=== PATIENT | female | born 2000 | race Caucasian/White ===

== ENCOUNTER 2019-04-26 09:55 | Emergency (ER) | payer MEDICAID ==
[~2019-04-26] VITALS: Ht 157.5 cm; Wt 50.3 kg
[2019-04-26 10:03] VITALS: Ht 157.5 cm; Wt 50.3 kg
[2019-04-26 11:03] VITALS: BP 108/65
== END 2019-04-26 11:56 | disposition home or self-care (01) ==
LOC: ED 09:55
DX: M94.0 Chondrocostal junction syndrome [Tietze] (principal)
CPT/HCPCS: J1885; Q0092